=== PATIENT | female | born 1990 | race African-American/Black ===

== ENCOUNTER 2019-07-15 18:48 | Emergency (ER) | payer OTHER ==
[~2019-07-15] VITALS: Ht 167.6 cm; Wt 65.9 kg
[2019-07-15] MEDS ORDERED: BENZONATATE 100 MG CAPSULE PO ONE (20:45)
[2019-07-15] MEDS ORDERED: ALBUTEROL SULFATE HFA 90 MCG/PUFF 8 GM INHALER IH ONE (20:45)
[2019-07-15 21:07] VITALS: BP 112/68
== END 2019-07-15 21:17 | disposition home or self-care (01) ==
LOC: EMS 18:53
DX: J45.909 Unspecified asthma, uncomplicated (principal)
CPT/HCPCS: 94640; J3535